=== PATIENT | female | born 1985 ===

== ENCOUNTER 2018-02-21 14:41 | Emergency (ER) | payer BC ==
--- NOTE | 2018-02-21 15:05 | UC ---
Abdominal Pain Female HPI - HPI Summary HPI Summary: This is carla Norris documenting for attending Andrew Graves MD. This patient is a 32 year old A0 F presenting to [facility] accompanied by with a chief complaint of sharp abd cramping and tightening that began 3 days ago. Pt reports that she is 15 weeks . The patient rates the pain 0/10 in severity. Symptoms aggravated by nothing. Symptoms alleviated by nothing. Patient reports nausea (resolved). Patient denies vaginal discharge. Medications reviewed. Allergies reviewed. - History of Current Complaint Chief Complaint: UCAbdominalPain Stated Complaint: ABDOMINAL PAIN 15 WEEKS Time Seen by Provider: 02/21/18 14:56 Hx Obtained From: Patient ?: Yes Onset/Duration: Sudden Onset, Lasting Days, Still Present Timing: Constant Severity Initially: Mild Severity Currently: Mild Pain Intensity: 0 Pain Scale Used: 0-10 Numeric Location: Diffuse Radiates: No Character: Cramping Aggravating Factor(s): Nothing Alleviating Factor(s): Nothing Associated Signs and Symptoms: Positive: Nausea. Negative: Vaginal Discharge Allergies/Adverse Reactions: Allergies Allergy/AdvReac Type Severity Reaction Status Date / Time No Known Allergies Allergy Verified 02/21/18 14:53 Home Medications: Home Medications Vit Calc,Iron,Folic [ Vitamins] 1 each PO 02/21/18 [History] PMH/Surg Hx/FS Hx/Imm Hx Previously Healthy: Yes Endocrine History: Other Other Endocrine History: Negative diabetes Cardiovascular History: Other Other Cardiovascular History: Negative HTN - Surgical History Surgical History: None - Family History Known Family History: Negative: Cardiac Disease, Diabetes - Social History Occupation: Employed Full-time Lives: With Family Alcohol Use: None Substance Use Type: None Smoking Status (MU): Never Smoked Tobacco Review of Systems Gastrointestinal: Abdominal Pain, Nausea Genitourinary: Other - Negative vaginal discharge All Other Systems Reviewed And Are Negative: Yes Physical Exam - Summary Physical Exam Summary: General: well-appearing, no pain distress Skin: warm, color reflects adequate perfusion, dry Head: normal Eyes: EOMI, EFRAIN ENT: normal Neck: supple, nontender Respiratory: CTA, breath sounds present Cardiovascular: RRR Abdomen: soft, nontender Bowel: present Musculoskeletal: normal, strength/ROM intact Neurological: sensory/motor intact, A&O x3 Psychological: affect/mood appropriate Triage Information Reviewed: Yes Vital Signs: Initial Vital Signs Temp 98.6 F 02/21/18 14:48 Pulse 66 02/21/18 14:48 Resp 18 02/21/18 14:48 BP 131/52 02/21/18 14:48 Pulse Ox 100 02/21/18 14:48 Vital Signs Reviewed: Yes Diagnostics - Radiology US Radiology Interpretation Completed By: Radiologist - US reveals, per radiologist, THERE IS A SINGLE INTRAUTERINE IN A VARIABLE PRESENTATION WITH A COMPOSITE ESTIMATED GESTATIONAL AGE OF 14 WEEKS 6 DAYS. THERE IS A MARGINAL PLACENTA PREVIA AT THIS EARLY STAGE OF RECOMMEND A FOLLOW-UP ULTRASOUND IN 3-4 WEEKS TIME. ED physician has reviewed this radiology report. Re-Evaluation - Re-Evaluation First Eval Re-Evaluation Time: 16:05 Change: Unchanged Comment: Discussed results and plan of care with pt Abd Pain Female Course/Dx - Course Course Of Treatment: PATIENT WAS UNABLE TO SHARE A URINE SAMPLE. SHE DENIES ANY UTI SX. DISCUSSED RESULTS OF US WITH THE PATIENT AND . F/U WITH OBGYN; RECHECK SOONER IF WORSE. - Differential Dx/Diagnosis Provider Diagnoses: ABDOMINAL PAIN IN Discharge - Sign-Out/Discharge Documenting (check all that apply): Patient Departure - Discharge Plan Condition: Stable Disposition: HOME Patient Education Materials: Abdominal Pain in (ED) Referrals: [facility] [place] [facility] [Outside] Additional Instructions: FOLLOW UP WITH YOUR OBGYN. GET RECHECKED FOR ANY WORSENING OF YOUR CONDITION; PAIN, FEVER, YOU FEEL ILL OR QUESTIONS OR CONCERNS. - Billing Disposition and Condition Condition: STABLE Disposition: Home
--- NOTE | 2018-02-21 15:59 | RAD ---
INDICATION: Pelvic cramping, 15 weeks . COMPARISON: There are no prior studies available for comparison. TECHNIQUE: Multiple real-time transabdominal images of the pelvis were obtained. FINDINGS: This exam demonstrates a single intrauterine in the variable presentation. cardiac activity and limb motion are noted. The heart rate was 139 beats per minute. The placenta was located posterior and extends near the level of the cervical os suggestive of a marginal placenta previa on this early ultrasound. The amniotic fluid volume appeared to be within normal limits. The cervix measured 4.4 cm in length and is closed. Biparietal diameter (cm): 2.70 14 weeks 6 days Head circumference (cm): 10.13 14 weeks 6 days Abdominal circumference (cm): 9.28 15 weeks 4 days Femur length (cm): 1.40 14 weeks 1 day The composite estimated gestational age was 14 weeks 6 days. The estimated weight at this time is 106 grams plus or minus 16 grams. The anatomy was not evaluated on this limited urgent study. The right ovary measured 3.7 x 2.5 x 2.4 cm. There is vascular flow present. The left ovary was not visualized. IMPRESSION: THERE IS A SINGLE INTRAUTERINE IN A VARIABLE PRESENTATION WITH A COMPOSITE ESTIMATED GESTATIONAL AGE OF 14 WEEKS 6 DAYS. THERE IS A MARGINAL PLACENTA PREVIA AT THIS EARLY STAGE OF RECOMMEND A FOLLOW-UP ULTRASOUND IN 3-4 WEEKS TIME.
== END 2018-02-21 16:20 | disposition home or self-care (01) ==
LOC: UCEAST 14:41
DX: O26.892 Other specified pregnancy related conditions, second trimester (principal); Z3A.15 15 weeks gestation of pregnancy; R10.9 Unspecified abdominal pain
CPT/HCPCS: 76815; 99201; G0463